=== PATIENT | female | born 1945 | race Caucasian/White ===

== ENCOUNTER 2021-02-17 14:27 | Emergency (ER) | payer MEDICARE, BC ==
[~2021-02-17] VITALS: Ht 160 cm; Wt 145.2 kg
[~2021-02-17 14:27] MED LIST: AMARYL2 MG PO; ASPIR 8181 MG PO; CYMBALTA60 MG PO; FLONASE 0.05%50 MCG NASAL; LEVOTHYROXINE 0.1 MG PO; LISINOPRIL-HCT1 EAC2 PO; LOVASTATIN 20 M20 MG PO; MEDROLDOSEPACK PO; METFORMIN HCL500 MG PO; MUCINEX TA600 MG/TA2 PO; PREMARIN0.3 MG PO; TESSALON PERLE100 MG PO; TRAMADOL 50 MG50 MG PO; VENTOLIN HFA 1818 GM INH; VICTOZA0.6 MG/0.1 SUBQ; VITAMIN B12-FO1 EAC1 PO; WELCHOL 625 MG625 M1 PO; ZANTAC 150MG T150 MG PO
[2021-02-17] MEDS ORDERED: NORCO5 PO ×2 (15:01→15:04)
[2021-02-17] MEDS ORDERED: FLEXERIL PO (15:01)
[2021-02-17] MEDS ORDERED: NAPROSYN500 MG PO (15:01)
[2021-02-17 15:19] VITALS: BP 113/39
== END 2021-02-17 15:20 | disposition home or self-care (01) ==
LOC: M.ERS 14:27
DX: G89.29 Other chronic pain (principal); M54.5 Low back pain; M54.6 Pain in thoracic spine; R53.1 Weakness; E11.9 Type 2 diabetes mellitus without complications; I10 Essential (primary) hypertension; E78.00 Pure hypercholesterolemia, unspecified; Z98.51 Tubal ligation status; Z90.49 Acquired absence of other specified parts of digestive tract; Z98.890 Other specified postprocedural states; Z79.899 Other long term (current) drug therapy; Z79.82 Long term (current) use of aspirin; Z91.048 Other nonmedicinal substance allergy status

== ENCOUNTER → 2021-05-24 | Outpatient (CLI) | payer MEDICARE, BC ==
[~2021-05-24] MED LIST changes: +FLEXERIL PO; +NAPROSYN500 MG PO; +NORCO5 PO
== END ==
LOC: M.WC 09:00
PROVIDERS: ATTEND Emergency Medicine Undersea and Hyperbaric Medicine
DX: E11.622 Type 2 diabetes mellitus with other skin ulcer (principal); L97.111 Non-pressure chronic ulcer of right thigh limited to breakdown of skin; I10 Essential (primary) hypertension; L84 Corns and callosities; R21 Rash and other nonspecific skin eruption; E66.01 Morbid (severe) obesity due to excess calories; G47.30 Sleep apnea, unspecified; F41.9 Anxiety disorder, unspecified; F32.9 Major depressive disorder, single episode, unspecified; Z68.43 Body mass index [BMI] 50.0-59.9, adult; Z79.899 Other long term (current) drug therapy; Z79.4 Long term (current) use of insulin; Z79.82 Long term (current) use of aspirin; Z90.49 Acquired absence of other specified parts of digestive tract; Z98.890 Other specified postprocedural states; Z96.653 Presence of artificial knee joint, bilateral